=== PATIENT | male | born 1990 | race Caucasian/White ===

== ENCOUNTER 2021-04-24 12:02 | Outpatient (CLI) | payer SELFPAY ==
[2021-04-24 19:55] LABS: SARS-CoV-2 PCR by NAA Not Detected (NotDetected)
== END 2021-04-24 12:03 | disposition home or self-care (01) ==
LOC: LABBT 12:02
PROVIDERS: ATTEND Orthopaedic Surgery
DX: Z01.812 Encounter for preprocedural laboratory examination (principal); S82.842A Displaced bimalleolar fracture of left lower leg, initial encounter for closed fracture; Z20.822 Contact with and (suspected) exposure to COVID-19
CPT/HCPCS: U0003; U0005

== ENCOUNTER 2021-04-26 06:36 | Day surgery (SDC) | payer OTHER ==
[2021-04-25 09:12] VITALS: BMI 36.6
[2021-04-26] MEDS ORDERED: ceFAZolin 2 GM/DEX 5% 100 ML BAG ONE (08:02)
[2021-04-26] MEDS ORDERED: Midazolam HCl 2 mg/2 ml Vial ONE (08:23)
[2021-04-26] MEDS ORDERED: Fentanyl 100 MCG/2 ML VIAL ONE ×2 (08:23→09:34)
[2021-04-26] MEDS ORDERED: Ketorolac Tromethamine 30 MG/ML VIAL ONE (09:35)
[2021-04-26] MEDS ORDERED: PROPOFOL 200 MG/20 ML VIAL ONE (09:35)
[2021-04-26] MEDS ORDERED: Dexamethasone 20 MG/5 ML VIAL ONE (09:35)
[2021-04-26] MEDS ORDERED: Lidocaine 1% PF 5 ML VIAL ONE (09:35)
[2021-04-26] MEDS ORDERED: Bupivacaine HCl 0.5%/Epinephrine 1:200,000/PF 30 ml Vial ONE (09:35)
[2021-04-26] MEDS ORDERED: Ondansetron PF 4 MG/2 ML Vial ONE (09:35)
== END 2021-04-26 13:08 | disposition home or self-care (01) ==
LOC: SDC 06:36
PROVIDERS: ATTEND Orthopaedic Surgery
PROC: 0QSH04Z Reposition Left Tibia with Internal Fixation Device, Open Approach (ICD-10-PCS; principal; 2021-04-26)
PROC: 0QSK04Z Reposition Left Fibula with Internal Fixation Device, Open Approach (ICD-10-PCS; principal; 2021-04-26)
DX: S82.842A Displaced bimalleolar fracture of left lower leg, initial encounter for closed fracture (principal); F17.200 Nicotine dependence, unspecified, uncomplicated; W18.42XA Slipping, tripping and stumbling without falling due to stepping into hole or opening, initial encounter
CPT/HCPCS: 76000; C1713; J1100; J1885; J2250; J2405; J2704; J3010

== ENCOUNTER 2023-08-07 10:47 | Inpatient (IN) | payer SELFPAY ==
[2023-08-07 14:03] VITALS: BMI 26.6
[2023-08-07] MEDS ORDERED: Ondansetron PF 4 MG/2 ML Vial IVP PRN (14:25)
[2023-08-07] MEDS ORDERED: Acetaminophen 325 MG TAB PO PRN (14:25)
[2023-08-07] MEDS ORDERED: Senokot S 8.6-50 MG TAB PO PRN (14:25)
[2023-08-07] MEDS: Nicotine 21 MG PATCH TD SCH (15:31)
[2023-08-07] MEDS: LevoFLOXacin 750 mg/D5W 750 MG in Premix 1 BAG IVPB SCH (15:32)
[2023-08-07 16:39] LABS: Amphetamine Not Detected (NotDetected); Barbiturates Screen Not Detected (NotDetected); Benzodiazepine Screen Not Detected (NotDetected); Cocaine Metabolite Screen Not Detected (NotDetected); Methadone Not Detected (NotDetected); Methamphetamine Not Detected (NotDetected); Opiate Screen Not Detected (NotDetected); Oxycodone Screen Not Detected (NotDetected); Phencyclidine (PCP) Not Detected (NotDetected); THC/Cannabinoid Screen Detected (NotDetected); Tricyclic Screen Not Detected (NotDetected)
[2023-08-07] MEDS: Ipratropium/Albuterol 3 ML NEB NEB SCH (19:26)
[2023-08-07] MEDS: guaiFENesin/DM ER PO SCH (19:55)
[2023-08-08] MEDS: Ipratropium/Albuterol 3 ML NEB NEB SCH ×4 (01:48→19:14)
[2023-08-08 06:35] LABS: Hematocrit 42.5 % (42.0-52.0); Hemoglobin 14.6 g/dL (14.0-18.0); Manual Diff?? YES; Mean Corpuscular HGB CONC 34.4 g/dL (32.0-36.0); Mean Corpuscular Hemoglobin 31.1 pg (27.0-31.0); Mean Corpuscular Volume 90.4 fl (78.0-98.0); Mean Platelet Volume 10.4 fL (7.4-10.4); Platelet Count 334 10x3/uL (130-400); RBC Distribution Width 12.4 % (11.5-14.5); White Blood Cell (WBC) Count 13.1 10x3/uL (4.8-10.8)
[2023-08-08 06:41] LABS: Delete Auto Diff?? YES
[2023-08-08 07:02] LABS: Anion Gap 14 mmol/L (10-20); BUN (Urea Nitrogen) 11 mg/dL (8.9-20.6); Calc. Creatinine Clearance 182 mL/min (70-130); Calcium 8.7 mg/dL (7.8-10.44); Carbon Dioxide 24 mmol/L (22-29); Chloride 105 mmol/L (98-107); Estimated GFR 127; Glucose 121 mg/dL (70-105); Potassium 3.7 mmol/L (3.5-5.1); Sodium 139 mmol/L (136-145)
[2023-08-08 07:10] LABS: Band 12 % (5-11); Burr Cells SLIGHT = 2-5 cells HPF (0-1); CellaVision Operator ID LAB.CMB; Lymphocytes 13 % (21-51); Monocytes 4 % (0-10); Neutrophil 70 % (42-75); Plasma Cells 1 % (0-0); Platelet Adequacy Comment Platelets Normal; Polychromasia SLIGHT = 2-3 cells HPF (0-2); Total Cell Count 101
[2023-08-08] MEDS: guaiFENesin/DM ER PO SCH ×2 (09:00→20:26)
[2023-08-08] MEDS: Enoxaparin 40 MG (0.4 mL) SYRINGE SC SCH (09:01)
[2023-08-08] MEDS: Nicotine 21 MG PATCH TD SCH (14:13)
[2023-08-08] MEDS: LevoFLOXacin 750 mg/D5W 750 MG in Premix 1 BAG IVPB SCH (14:13)
[2023-08-09] MEDS: Ipratropium/Albuterol 3 ML NEB NEB SCH ×4 (01:36→19:40)
[2023-08-09] MEDS: Enoxaparin 40 MG (0.4 mL) SYRINGE SC SCH (08:56)
[2023-08-09] MEDS: guaiFENesin/DM ER PO SCH ×2 (08:56→20:46)
[2023-08-09 09:44] LABS: Hematocrit 41.9 % (42.0-52.0); Hemoglobin 14.5 g/dL (14.0-18.0); Manual Diff?? YES; Mean Corpuscular HGB CONC 34.6 g/dL (32.0-36.0); Mean Corpuscular Hemoglobin 31.7 pg (27.0-31.0); Mean Corpuscular Volume 91.5 fl (78.0-98.0); Mean Platelet Volume 9.8 fL (7.4-10.4); Platelet Count 345 10x3/uL (130-400); RBC Distribution Width 12.7 % (11.5-14.5); Red Blood Cell (RBC) Count 4.58 mill/uL (4.70-6.10); White Blood Cell (WBC) Count 14.2 10x3/uL (4.8-10.8)
[2023-08-09 09:54] LABS: Delete Auto Diff?? YES
[2023-08-09 10:24] LABS: Band 11 % (5-11); CellaVision Operator ID LAB.CMB; Lymphocytes 17 % (21-51); Metamyelocyte 2 % (0-0); Monocytes 6 % (0-10); Neutrophil 60 % (42-75); Plasma Cells 3 % (0-0); Platelet Adequacy Comment Platelets Normal; Polychromasia SLIGHT = 2-3 cells HPF (0-2); Reactive Lymphocytes 2 % (0-10); Total Cell Count 102
[2023-08-09] MEDS: Guaifenesin DM 100-10/5 ML UDCUP PO PRN ×2 (11:42→17:01)
[2023-08-09] MEDS: Nicotine 21 MG PATCH TD SCH (14:40)
[2023-08-09] MEDS: LevoFLOXacin 750 mg/D5W 750 MG in Premix 1 BAG IVPB SCH (14:40)
[2023-08-10] MEDS: Ipratropium/Albuterol 3 ML NEB NEB SCH ×2 (02:06→07:19)
[2023-08-10 06:25] LABS: Hematocrit 45.8 % (42.0-52.0); Hemoglobin 15.5 g/dL (14.0-18.0); Manual Diff?? YES; Mean Corpuscular HGB CONC 33.8 g/dL (32.0-36.0); Mean Corpuscular Hemoglobin 31.1 pg (27.0-31.0); Mean Corpuscular Volume 91.8 fl (78.0-98.0); Mean Platelet Volume 9.8 fL (7.4-10.4); Platelet Count 379 10x3/uL (130-400); RBC Distribution Width 12.8 % (11.5-14.5); Red Blood Cell (RBC) Count 4.99 mill/uL (4.70-6.10); White Blood Cell (WBC) Count 16.3 10x3/uL (4.8-10.8)
[2023-08-10 06:31] LABS: Delete Auto Diff?? YES
[2023-08-10 07:22] LABS: Band 5 % (5-11); CellaVision Operator ID LAB.GE; Large Platelets 2.5 % (0-5); Lymphocytes 14 % (21-51); Monocytes 3 % (0-10); Neutrophil 69 % (42-75); Nucleated RBC (Manual Ct) 1 % (0); Platelet Adequacy Comment Platelets Normal; Polychromasia SLIGHT = 2-3 cells HPF (0-2); Reactive Lymphocytes 7 % (0-10); Total Cell Count 119; Toxic Granulation MODERATE
[2023-08-10] MEDS: guaiFENesin/DM ER PO SCH (08:57)
[2023-08-10] MEDS: Enoxaparin 40 MG (0.4 mL) SYRINGE SC SCH (08:58)
[2023-08-10 09:10] VITALS: BP 115/78; TEMP 98.6
[2023-08-10] MEDS: Guaifenesin DM 100-10/5 ML UDCUP PO PRN (11:01)
== END 2023-08-10 11:19 | disposition home or self-care (01) | DRG 193 ==
LOC: T4-A 13:34
PROVIDERS: ADMIT Internal Medicine; ATTEND Family Medicine
DX: J18.9 Pneumonia, unspecified organism (principal); J96.01 Acute respiratory failure with hypoxia; R04.2 Hemoptysis; F17.210 Nicotine dependence, cigarettes, uncomplicated; F12.929 Cannabis use, unspecified with intoxication, unspecified; Z98.890 Other specified postprocedural states; Z11.52 Encounter for screening for COVID-19
CPT/HCPCS: 36415; 80048; 80306; 85025; 87633; 94640; J1956; J7620